=== PATIENT | female | born 1940 | race Two or more races ===

== ENCOUNTER 2017-10-22 11:04 | Outpatient (CLI) | payer OTHER ==
[~2017-10-22 11:04] MED LIST: PRILOSEC40 MG PO; SYNTHROID50 MCG; VASOTEC10 MG; XANAX2 MG; ZOLOFT50 MG PO
== END 2017-10-22 11:13 | disposition home or self-care (01) ==
LOC: RAD 501 11:04
DX: M12.89 Other specific arthropathies, not elsewhere classified, multiple sites (principal); M19.90 Unspecified osteoarthritis, unspecified site

== ENCOUNTER 2017-11-11 06:30 | Emergency (ER) | payer OTHER ==
[~2017-11-11] VITALS: Ht 157.5 cm; Wt 72.6 kg
== END 2017-11-11 11:51 | disposition home or self-care (01) ==
LOC: ER 06:30
DX: N39.0 Urinary tract infection, site not specified (principal); R53.1 Weakness; B96.1 Klebsiella pneumoniae [K. pneumoniae] as the cause of diseases classified elsewhere